=== PATIENT | male | born 1955 | race Caucasian/White ===

== ENCOUNTER 2018-02-24 11:29 | Emergency (ER) | payer MEDICARE, OTHER ==
[2018-02-24] MEDS ORDERED: Lidocaine 1% 20 ML MDV ONE (11:57)
[2018-02-24] MEDS ORDERED: Adacel (T-DAP) 0.5 ML VIAL ONE (12:10)
[2018-02-24] MEDS ORDERED: Neosporin Ophth Soln 10 ml Bottle ONE (12:39)
[2018-02-24] MEDS ORDERED: Triple Antibiotic Oint 1 GM Packet ONE (12:39)
== END 2018-02-24 12:48 | disposition home or self-care (01) ==
LOC: MADERS 11:29
DX: S61.411A Laceration without foreign body of right hand, initial encounter (principal); I10 Essential (primary) hypertension; E11.9 Type 2 diabetes mellitus without complications; M10.9 Gout, unspecified; E78.5 Hyperlipidemia, unspecified; W45.8XXA Other foreign body or object entering through skin, initial encounter
CPT/HCPCS: 12001; 90471; 90715; J2001